=== PATIENT | male | born 1995 | race Caucasian/White ===

== ENCOUNTER 2018-01-25 08:39 | Emergency (ER) | payer OTHER, SELFPAY ==
[2018-01-25 08:39] VITALS: BP 161/106; PULSE 81; RESP 17; TEMP 35.8; O2SAT 98; BMI 51.7
--- NOTE | 2018-01-25 08:58 | ED.VISSUMM ---
- ER Visit Summary Date of Service: 01/25/18 Chief Complaint: Animal bite History of Present Illness: The patient is a 22 M who presents with an animal bite to his right index finger. Patient states a chipmunk ran up his leg and went into his pocket. Patient states that when he was trying to remove it from his pocket the chipmunk bit him on his right index finger. Patient states there was some mild bleeding. Patient denies any paresthesias or weakness. Patient is unsure of his last tetanus. Physical Examination: Vital signs are stable. Patient is afebrile. Patient is in no acute distress. Skin is warm dry. There is some mild edema and erythema over the proximal phalanx of the right index finger. There is no active bleeding noted. There is no discharge or drainage. Sensation was intact to light touch in all digits. Capillary refill is less than 2 seconds in all digits. There is full range of motion of the MP, PIP, and DIP joints of the right index finger. The remaining physical exam is within normal limits. Emergency Department Course and Treatment: Patient was given a tetanus booster here. Bacitracin dressing was applied. Patient was advised that he does not need rabies immunizations. Patient was instructed to [facility]. Patient was instructed to watch for signs of infection and return if he develops any signs of infection. Patient understood and was agreeable with the plan. All questions were answered. Disposition: Discharged home Impression: Animal bite right index finger This note was generated with OTOY dictation software. It may contain incorrect words, spelling, and punctuation that were not noted in review of the chart prior to signing ED Disposition - Plan for ED Patient: Disposition: Home or Assisted Living Chief Complaint: Bite Diagnosis: Animal bite of finger Instructions: ED Bite Animal General Referrals: Ravinder Gaming DO [Primary Care Provider] -
--- NOTE | 2018-01-25 09:02 | ED.DCSUM_ITS ---
- ER Visit Summary Date of Service: 01/25/18 Chief Complaint: Animal bite History of Present Illness: The patient is a 22 M who presents with an animal bite to his right index finger. Patient states a chipmunk ran up his leg and went into his pocket. Patient states that when he was trying to remove it from his pocket the chipmunk bit him on his right index finger. Patient states there was some mild bleeding. Patient denies any paresthesias or weakness. Patient is unsure of his last tetanus. Physical Examination: Vital signs are stable. Patient is afebrile. Patient is in no acute distress. Skin is warm dry. There is some mild edema and erythema over the proximal phalanx of the right index finger. There is no active bleeding noted. There is no discharge or drainage. Sensation was intact to light touch in all digits. Capillary refill is less than 2 seconds in all digits. There is full range of motion of the MP, PIP, and DIP joints of the right index finger. The remaining physical exam is within normal limits. Emergency Department Course and Treatment: Patient was given a tetanus booster here. Bacitracin dressing was applied. Patient was advised that he does not need rabies immunizations. Patient was instructed to follow-[facility] his primary care physician [facility]. Patient was instructed to watch for signs of infection and return if he develops any signs of infection. Patient understood and was agreeable with the plan. All questions were answered. Disposition: Discharged home Impression: Animal bite right index finger This note was generated with [employer] dictation software. It may contain incorrect words, spelling, and punctuation that were not noted in review of the chart prior to signing ED Disposition - Plan for ED Patient: Disposition: Home or Assisted Living Chief Complaint: Bite Diagnosis: Animal bite of finger Instructions: ED Bite Animal General Referrals: Ravinder Gaming DO [Primary Care Provider] -
[2018-01-25] MEDS: BACITRACIN 15 GM Tube 1 APPLIC TOPICAL (09:17)
[2018-01-25] MEDS: Diphth,Pertuss(Acell),Tet Vac 0.5 ML Vial IM (09:17)
== END 2018-01-25 09:32 | disposition home or self-care (01) ==
PROVIDERS: Emergency Provider Emergency Medicine; Family Provider Pediatrics; PCP Pediatrics
DX: S60.470A Other superficial bite of right index finger, initial encounter (principal); W53.81XA Bitten by other rodent, initial encounter; Y93.9 Activity, unspecified; Y92.9 Unspecified place or not applicable; F32.9 Major depressive disorder, single episode, unspecified; Z79.899 Other long term (current) drug therapy
CPT/HCPCS: 90471; 90715; 99282

== ENCOUNTER 2018-06-08 10:58 | Outpatient (RCR) | payer SELFPAY | END 2018-06-14 23:59 | LOC: NS 10:58 | PROVIDERS: Family Provider Pediatrics; PCP Pediatrics; Visit Provider Family Medicine | DX: E66.9 Obesity, unspecified (principal); Z68.43 Body mass index [BMI] 50.0-59.9, adult; Z71.3 Dietary counseling and surveillance | CPT/HCPCS: 97802 ==

== ENCOUNTER 2018-07-06 09:30 | Outpatient (RCR) | payer SELFPAY | END 2018-07-12 23:59 | LOC: NS 09:30 | PROVIDERS: Family Provider Pediatrics; PCP Pediatrics; Visit Provider Family Medicine | DX: E66.01 Morbid (severe) obesity due to excess calories (principal); Z68.43 Body mass index [BMI] 50.0-59.9, adult; Z71.3 Dietary counseling and surveillance | CPT/HCPCS: 97803 ==

== ENCOUNTER 2018-07-23 11:09 | Outpatient (RCR) | payer SELFPAY | END 2018-08-12 23:59 | LOC: NS 11:09 | PROVIDERS: Family Provider Pediatrics; PCP Pediatrics; Visit Provider Family Medicine | DX: E66.01 Morbid (severe) obesity due to excess calories (principal); Z68.43 Body mass index [BMI] 50.0-59.9, adult; Z71.3 Dietary counseling and surveillance | CPT/HCPCS: 97803 ==

== ENCOUNTER 2018-09-07 14:30 | Outpatient (RCR) | payer SELFPAY | END 2018-09-07 23:59 | LOC: NS 14:30 | PROVIDERS: Family Provider Pediatrics; PCP Pediatrics; Visit Provider Family Medicine | DX: E66.01 Morbid (severe) obesity due to excess calories (principal); Z68.43 Body mass index [BMI] 50.0-59.9, adult; Z71.3 Dietary counseling and surveillance | CPT/HCPCS: 97803 ==

== ENCOUNTER 2020-09-10 09:26 | Emergency (ER) | payer OTHER, SELFPAY ==
[2020-09-10 09:27] VITALS: BP 163/95; PULSE 76; RESP 16; TEMP 36.4; O2SAT 96; BMI 54.6
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
[2020-09-10] MEDS: Diphth,Pertuss(Acell),Tet Vac 0.5 ML Vial IM (12:35)
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
== END 2020-09-10 13:29 | disposition home or self-care (01) ==
PROVIDERS: Emergency Provider Emergency Medicine; PCP Family Medicine
DX: S09.90XA Unspecified injury of head, initial encounter (principal); S40.812A Abrasion of left upper arm, initial encounter; S40.811A Abrasion of right upper arm, initial encounter; S10.91XA Abrasion of unspecified part of neck, initial encounter; S40.872A Other superficial bite of left upper arm, initial encounter; S40.871A Other superficial bite of right upper arm, initial encounter; S10.97XA Other superficial bite of unspecified part of neck, initial encounter; Y04.8XXA Assault by other bodily force, initial encounter; Y04.1XXA Assault by human bite, initial encounter; Y93.9 Activity, unspecified; Y92.9 Unspecified place or not applicable; F41.9 Anxiety disorder, unspecified
CPT/HCPCS: 70450; 90715; 99282

== ENCOUNTER 2023-10-16 08:43 | Day surgery (SDC) | payer OTHER, SELFPAY ==
[2023-10-16 09:22] VITALS: BP 107/62; PULSE 69; RESP 18; TEMP 36.7; O2SAT 97; BMI 24.1
[2023-10-16] MEDS: Lactated Ringers 1,000 ML 15 ML IV (09:22)
--- NOTE | 2023-10-16 10:25 | PCM.DC.SUM ---
Providers Primary Care Physician: Dr. Reddy Armstrong MD Reason For Visit: excision left external auditory jacquelyn Medications at Discharge Home Medications clomiphene citrate 50 mg tablet 50 mg PO DAILY 09/10/20 Weight / BMI Weight Weight: 72 kg Body Mass Index (BMI) 24.1 D/C Instructions Discharge Diet: No restrictions Discharge Activity: Return to Normal Activity Additional Instructions: apply neosporin to the excision site twice a day. Start on 10/17/23 Please Follow Up With: Juan Neri MD When: 2 weeks Meaningful Use Info Meaningful Use Meaningful Use Diagnoses (Choose all that apply): None applicable Ischemic Stroke Statin Dosing Therapy Reference: STATIN DOSE THERAPY REFERENCE: * Patients > 75 years receive moderate or high dose statin therapy. * Patients 75 years or YOUNGER should receive HIGH intensity statin dose unless contraindicated. You will be required to document reason for non-treatment if statin daily dose does not meet guidelines. HIGH DOSE STATIN THERAPY DAILY Atorvastatin > than or = to 40 mg Rosuvastatin > than or = to 20 mg Amlodipine + Atorvastatin > than or = to 2.5/40 mg Ezetimibe + Simvastatin 10/80 mg Simvastatin 80mg Discharge Plan Admission Attending Provider: Juan Neri Primary Care Provider: Reddy Armstrong Instructions Print Language: Chinese Discharge Orders/Prescriptions Prescriptions: No Action clomiphene citrate 50 mg tablet 50 mg PO DAILY Patient Comments: Take 50 mg (1 full tab) every other day M,W,F, Mckeon and 25 mg(1/2 tab) on T, , Referrals / Follow Up: Reddy Armstrong MD [Primary Care Provider] - Disposition Disposition (needs filled in before D/C Order can be placed): Home, Self Care
--- NOTE | 2023-10-16 10:26 | PCM.OPRPT ---
Report of Operation Date of Procedure: 10/16/23 Pre-Operative Diagnosis: left external auditory canal mass Post-Operative Diagnosis: same Surgery/Procedure Performed:: excision left external auditory canal mass Surgeon: Juan Neri Type of Anesthesia: Local MAC Anesthesiologist: Mikey Valencia Specimen's removed: left external auditory canal mass Estimated Blood Loss (mL): minimal Description of Procedure: The patient was taken to the operating room on 10/16/2023. He was placed in the supine position on the operating room table. He was given local MAC anesthesia. The left ear was prepped and draped sterilely. 1% lidocaine with epinephrine was injected into the left external auditory canal/meatus. A speculum and operating microscope was used for visualization. After sufficient vasoconstriction the mass was excised with a round [place] blade. The mass was removed with scissors and sent for permanent section. I then used bipolar cautery for hemostasis. Bacitracin and a cottonball were applied. The patient was then awoken and brought to the recovery room in stable condition. blood loss minimal, replacement none. Sponge, needle, and instrument count were correct at the end of the procedure.
--- NOTE | 2023-10-16 10:40 | MASS_PTH ---
PATIENT: FLAQUITO SPEARS LOC: [facility] U#:[id number] AGE/SX: 28/M ROOM: RE10/16/[address]: Dr. Juan Neri MD : 1995 BED: DIS: 10/16/2023 SPEC #: [id number] RECD: 10/16/23 13:05 STATUS: DELANO YOLANDA #: [id number] CARIN: 10/16/23 10:[address]: Juan Neri DEPT: SURGICAL PATHOLOGY RECD BY: Steven Duran ENTERED: 10/16/23 13:27 SP TYPE: Mass OTHR DR: Dr. Reddy Armstrong MD Tissues: Skin of external auditory canal Procedures: Decalcification bone/plaque Surgery Specimen Level IV HEADER OPERATION: Excision left external auditory meatus PRE-OP DIAGNOSIS: Left external auditory canal mass TISSUE SUBMITTED: Left external canal mass MICROSCOPIC DIAGNOSIS Left external ear canal mass, biopsy: Benign fibroepithelial polyp. AM/mr 10/18/2023 MICROSCOPIC DESCRIPTION Slides are reviewed. GROSS DESCRIPTION Received in fixative is one container labeled with the patient's name and designated Left external canal mass. The specimen consists of a piece of feldman indurated tissue measuring 0.3 x 0.2 x 0.1cm. The entire specimen is submitted in one cassette after decalcification. /mr 10/16/23 TC:5 CPT:68696
[2023-10-16] MEDS: Lidocaine 1% /Epi 1:100 (20ml) 20 ML Vial (10:41)
[2023-10-16] MEDS: Bacitracin 500 UNITS/GM PACKET (10:48)
[2023-10-16 10:58] VITALS: BP 107/62; BP 112/70; PULSE 68; RESP 20; TEMP 36.3; O2SAT 95
[2023-10-16 11:00] VITALS: BP 107/62; BP 112/66; PULSE 79; RESP 18; O2SAT 94
[2023-10-16 11:05] VITALS: BP 107/62; BP 111/66; PULSE 68; RESP 14; O2SAT 96
[2023-10-16 11:06] VITALS: BMI 57.6
[2023-10-16 11:12] VITALS: BP 107/62; BP 117/57; PULSE 71; RESP 14; TEMP 36.3; O2SAT 94
[2023-10-16 11:31] VITALS: BP 107/62
== END 2023-10-16 11:34 | disposition home or self-care (01) ==
LOC: SDC 08:46 → AC 08:47
PROVIDERS: PCP Family Medicine; Referring Provider Otolaryngology; Visit Provider Otolaryngology
PROC: (CPT 69145; principal; 2023-10-16 10:30)
DX: H74.42 Polyp of left middle ear (principal); E29.1 Testicular hypofunction; Z79.899 Other long term (current) drug therapy
CPT/HCPCS: 69145; 00120; 88305; 88311; J7120; J2405

== ENCOUNTER 2024-09-01 11:57 | Emergency (ER) | payer OTHER, SELFPAY ==
[2024-09-01 11:58] VITALS: BP 146/88; PULSE 69; RESP 16; TEMP 36.9; O2SAT 96; BMI 46.6
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
== END 2024-09-01 12:52 | disposition home or self-care (01) ==
LOC: ED 12:22
PROVIDERS: Emergency Provider Emergency Medicine; PCP Physician Assistant; Visit Provider Emergency Medicine
DX: S41.151A Open bite of right upper arm, initial encounter (principal); S41.152A Open bite of left upper arm, initial encounter; W50.3XXA Accidental bite by another person, initial encounter; Y93.89 Activity, other specified; Y99.0 Civilian activity done for income or pay; Y92.89 Other specified places as the place of occurrence of the external cause
CPT/HCPCS: 99282